=== PATIENT | male | born 1950 | race Caucasian/White ===

== ENCOUNTER 2018-08-25 11:56 | Inpatient (IN) ==
[2018-08-25] MEDS ORDERED: TYLENOL PO PRN (12:44)
--- NOTE | 2018-08-25 13:19 | EKG Report ---
Test Performed on : 08/25/2018 1:14:23 PM Test Reason : afib Blood Pressure : / mmHG Vent. Rate : 119 BPM Atrial Rate : 156 BPM P-R Int : 000 ms QRS Dur : 114 ms QT Int : 378 ms P-R-T Axes : 000 -38 091 degrees QTc Int : 531 ms Atrial fibrillation. with rapid ventricular response. Left axis deviation Incomplete right bundle branch block Inferior infarct , age undetermined Prolonged QT Abnormal ECG No previous ECGs available Confirmed by Srinivas VELASQUEZ, Yoandy Carcamo ([id number]) on 08/25/2018 5:45:08 PM
[2018-08-25] MEDS ORDERED: MUCINEX PO ONE (13:29)
[2018-08-25] MEDS ORDERED: NORVASC PO ONE ×2 (13:31→17:15)
[2018-08-25 13:52] LABS: BASO# 0.07 X1000 (0.0-0.2); BASO% 0.6 % (0.0-0.8); EOS# 0.04 X1000 (0.0-0.7); EOS% 0.4 % (0.0-10.0); HEMATOCRIT 35.4 % (42.0-52.0); HEMOGLOBIN 11.1 g/dL (14.0-18.0); IMM GRAN# 0.03 X1000 (0.0-0.04); IMM GRAN% 0.3 % (0.0-0.5); LYMPH# 1.12 X1000 (1.2-3.4); LYMPH% 10.1 % (20.5-51.1); MCH 25.8 PG (27-31); MCHC 31.4 g/dL (33-37); MCV 82.1 FL (81-99); MONO# 1.57 X1000 (0.11-0.59); MONO% 14.2 % (1.7-9.3); MPV 9.5 FL (7.4-10.4); NEUT# 8.25 X1000 (1.4-6.5); NEUT% 74.4 % (42.2-75.2); PLT 385 X1000 (130-400); RBC 4.31 XMIL (4.7-6.1); RDW 16.4 % (11.5-14.5); WBC 11.08 X1000 (4.8-10.8)
[2018-08-25] MEDS ORDERED: BENICAR PO ONE ×2 (14:00→17:15)
[2018-08-25] MEDS ORDERED: MAXIPIME 1 GM in NS 50 ML IV SCH (14:00)
[2018-08-25 14:14] LABS: HEMOGLOBIN A1C 6.9 % (4.8-6.0)
[2018-08-25 14:21] LABS: ALBUMIN 3.9 g/dL (3.5-5.0); CALCIUM 9.5 mg/dL (8.8-10.2); CREATININE 1.3 mg/dL (0.7-1.2); POTASSIUM 3.6 mmol/L (3.5-5.1); TOTAL BILIRUBIN 0.74 mg/dL (0.20-1.00); TOTAL PROTEIN 7.8 g/dL (6.3-8.3)
[2018-08-25 14:33] LABS: TSH 3.32 uIUmL (0.27-4.20)
[2018-08-25 14:36] LABS: FREE T4 2.17 ng/dL (0.93-1.70)
--- NOTE | 2018-08-25 14:51 | HISTORY AND PHYSICAL ---
PRIMARY CARE PROVIDER: Dr. Baldo Villela. CHIEF COMPLAINT: Shortness of breath with a productive cough and difficulty breathing. HISTORY OF PRESENT ILLNESS: Mr Caesar Avendano is a 67-year-old, male with a medical history of coronary artery disease and a CABG in 2012. Also, a mitral valve replacement. The patient is unsure if it is mechanical or tissue. He has a history of diabetes, atrial fibrillation on Pradaxa, and hypertension. Last Saturday he started having symptoms of cough, wheeze, and headache. By Saturday he had decreased appetite, worsening shortness of breath, and subjective fever with chills. He presented to [facility] due to his PCP being closed on Fridays. He received Rocephin and steroids intramuscularly. He was sent home with a prescription of doxycycline. The patient proceeded to continue the doxycycline but symptoms have worsened. He started having worsening productive cough with phlegm being white in color, but most recently started turning yellow in color. He presented to Dr. Villela's office today where a chest x-ray was performed, which is shown on a different AH number for 9:10 this morning, which showed hazy infiltrate at the right base and bronchopneumonia. So, he is being admitted for failed outpatient therapy for pneumonia. He also has atrial fibrillation that is tachycardic at this time with a rapid ventricular response in the 1teens, up to 120s, and blood pressure is stable. He has mild hypoxia with 88% saturation on room air in the office and 91% saturation on room air here. He is being placed on oxygen therapy. Dr. Villela spoke with Dr. Gutierrez by phone, who apparently recommended Zyvox and cefepime, given his history of valve replacement and to perform cultures, so will consult Dr. Gutierrez. PAST MEDICAL HISTORY: 1. Coronary artery disease with a myocardial infarction in 2012. No cardiac stents, but had bypass surgery x3. 2. Diabetes mellitus, type 2. 3. Hypertension. 4. Atrial fibrillation, chronic, with failed DCCVs in 2012. 5. Macular degeneration of the left eye. 6. Hyperlipidemia. SURGICAL HISTORY: 1. CABG x3 with mitral valve replacement in 2012. Unsure if it is tissue or mechanical, likely is tissue. He is on Pradaxa for his atrial fibrillation. 2. Total left hip replacement. 3. Anterior cervical fusion. 4. Bilateral cataract surgery. 5. DCCV x2 in 2012. SOCIAL HISTORY: Quit smoking in 2012, prior to that he smoked two small packs of cigars per day, mostly chewed on them, but had been doing that since the age of 16. He also quit alcohol in the year 1999. Denies any illicit drug use. He is here with his at the bedside. FAMILY HISTORY: Mother at 53 of lung cancer. Father at 62 of end- stage renal disease. ALLERGIES: Invokana. HOME MEDICATIONS: Have not been verified by nursing staff or reconciled in the computer, but the list was given to me by the patient and he is on 1. Pradaxa 150 mg p.o. twice daily. 2. Glimepiride 4 mg p.o. twice daily. 3. Amiodarone 200 mg p.o. daily. 4. Gisela, which is amlodipine/olmesartan 5/20 daily. 5. Pravastatin 40 mg p.o. nightly. 6. Aspirin 81 mg p.o. daily. 7. Metformin 500 mg p.o. twice daily. REVIEW OF SYSTEMS: A 14-point review of systems are complete and all are negative except as mentioned above in HPI. He continues to have cough and wheeze. Denies headache at this time, but has decreased appetite and poor p.o. intake. He has subjective fever with chills and worsening shortness of breath at night. He denies any chest pain. PHYSICAL EXAMINATION: VITAL SIGNS: Temperature 98.8. Heart rate initially was 78, is up to 110 and was 119 on EKG. Atrial fibrillation. Respiratory rate 20. Blood pressure 166/85. O2 saturation 91% on room air. He was placed on 2 L per nasal cannula. HEENT: Atraumatic and normocephalic. Pupils are equal, round and reactive to light. Extraocular movements intact. Mucous membranes are dry. NECK: Trachea midline. CARDIOVASCULAR: Irregularly irregular, tachycardic rate and rhythm. No rubs, gallops, or murmurs. Trace of lower extremity edema. He had +2 dorsalis and radial pulses. Negative for JVD or carotid bruits. PULMONARY: Clear to auscultation in the upper lobes. Decreased in the bases and some mild expiratory wheezes noted. No accessory muscle use or work of breathing noted. He is tolerating 2L nasal cannula. GASTROINTESTINAL: Soft, nontender, nondistended. Positive bowel sounds x4. EXTREMITIES: Moves all extremities equally with full range of motion. NEUROLOGICAL: A and O x3. Follows commands. Sensory is intact. SKIN: Warm, dry, and intact. LABORATORY DATA: Not available yet, has been ordered. IMAGING: Chest x-ray that was performed at 9:10 this morning on a different AH number, results with stable, mild cardiomegaly, apparent hazy infiltrate at the right base with bronchopneumonia that cannot be excluded. EKG on this admit shows atrial fibrillation with a rapid ventricular response, rate of 119, prolonged QTC of 531. ASSESSMENT AND PLAN: 1. Failed outpatient treatment of bronchopneumonia. He was given Rocephin, steroids, and doxycycline. Per Dr. Gutierrez, who spoke with Dr. Villela, the patient will be started on Zyvox and cefepime and cultures will be ordered. Will also order a lactate. 2. Chronic atrial fibrillation, now with mild rapid ventricular response with hemodynamics stable. Rate is anywhere from 110 up to 120s. He skipped his amiodarone this morning, so will resume that and give a now dose. Blood pressure could probably tolerate a beta-kasie. He is not on any beta-kasie therapy at home. Will continue the Pradaxa at 150 mg p[address] twice daily. Dr. Conde is his senior director creative services. Currently will hold on consult unless we have difficulties with controlling rate. Rate should improve after receiving intravenous fluid hydration and the antibiotics, likely is more tachycardic given the infection. 3. Hyperlipidemia. Continue statin. 4. Diabetes mellitus type 2. Will do patterned blood glucoses, sliding scale insulin, and will check a hemoglobin A1c. 5. Coronary artery disease with history of myocardial infarction and coronary artery bypass graft. Continue aspirin and statin, but again he is not on a beta-kasie and he may benefit from a beta-kasie. No complaints of chest pain. 6. Hypertension. He takes Gisela at home, which is amlodipine/olmesartan, will continue that. 7. Could be sepsis, but will wait and see what the white blood cell count looks like and the lactate. He is definitely not in shock. Dictated by LEVI Wilkinson for Martinez Kulkarni MD cc: LEVI Wilkinson MD Baldo Tika I have seen and examined Mr Avendano today. No family around. I have reviewed his labs and imaging studies. Mr Avendano presents with failed outpatient management for bronchopneumonia. I agree with the above HPI and the plan reflects my opinion discussed with the CATALOGUE LIBRARIAN. JESSICA
[2018-08-25] MEDS ORDERED: MAXIPIME 2 GM in NS 50 ML IV SCH (15:05)
[2018-08-25] MEDS: ZYVOX 600 MG/D5W 600 MG/300 ML IVPB IV SCH (15:19)
[2018-08-25] MEDS: NS 1,000 ML IV SCH (15:19)
[2018-08-25] MEDS: ATROVENT NEB INH SCH ×3 (15:43→23:00)
[2018-08-25] MEDS: XOPENEX NEB INH SCH ×3 (15:43→23:00)
--- NOTE | 2018-08-25 16:12 | INFECTIOUS DISEASE CONSULT REP ---
DATE: 08/25/2018 CONCLUSION: The patient is admitted to the hospital with a right lower lobe infiltrate and the patient was not getting any better despite being on p.o. antibiotics and one injection of Rocephin. RECOMMENDATIONS: Dr. Villela called me on this patient. I told him to start the patient on cefepime and Zyvox. Subsequently, the patient has been admitted and the nurse practitioner based on my call with Dr. Villela ordered that the patient be started on Zyvox and cefepime. I have increased the dose of cefepime from 1 g to 2 g IV every 12 hours. DISCUSSION: The patient approximately 4 days ago developed fever and a cough. He was producing some white sputum, but now he does not have any sputum production. He also was experiencing odynophagia. He said he felt like there was something in his throat that made it difficult for him to swallow. This just started in the past 2 days. The patient was tried on oral antibiotics and also an injection of Rocephin, but the patient did not get any better and therefore he has been hospitalized. Studies we have thus far [place] [address], hemoglobin 11.1 and platelet count 385,000. Creatinine is 1.3. GFR is 55. Liver function studies are normal. Chest x-ray shows a right lower lobe infiltrate. PAST MEDICAL HISTORY/REVIEW OF SYSTEMS: Eyes and Ears: Patient has decreased hearing and he wears glasses for vision. Neck: No stiffness. Respiratory: See present illness. Gastrointestinal: No nausea, vomiting or diarrhea. Genitourinary: No dysuria or flank pain. Cardiac: No chest pains or palpitations. Bones, Joints, Muscles: The patient currently is not complaining of any joint pain or muscle aching. Integument: No rashes. Endocrine: The patient is diabetic, but he does not have any thyroid problems. PREVIOUS HOSPITALIZATIONS AND OPERATIONS: He has had coronary artery bypass grafting, mitral valve replacement, and myocardial infarction. He has also had a left total hip arthroplasty. He has had surgery on his cervical spine which included putting some metal on the spine. MEDICAL DISEASES: Positive for obesity, diabetes mellitus, hypertension, myocardial infarction, hyperlipidemia, degenerative joint disease and atrial fibrillation. INFECTIOUS DISEASE HISTORY: Negative for pneumonia and UTI. FAMILY HISTORY: Positive for renal failure, cancer and hypertension. SOCIAL HISTORY: [place] He is . He does not smoke cigarettes, drink alcoholic beverages or abuse drugs. He is retired. He has dogs for pets. ALLERGIES: His chart lists no known drug allergies. HOME MEDICATIONS: Include the following: Amiodarone, amlodipine/olmesartan, Pradaxa, aspirin, glimepiride, metformin and Pravachol. PHYSICAL EXAMINATION: Vital Signs: Temperature is 98.8, pulse 110, respirations 20, blood pressure 166/85. Patient is 5 feet 9 inches tall. Weighs 232 pounds. General: This is an obese elderly male. He is in no acute distress. Head, Eyes, Ears, Nose and Throat: He can hear my spoken words and see near objects. He has decreased hearing and he wears glasses for his vision. I did not see any white patches in his mouth, I did not see any ulcerated areas. His throat did not look red. Neck: No meningismus. Thorax: Patient seemed to have an increased AP diameter of his chest. Lungs: Clear to auscultation. Cardiovascular: Heart rate is irregular. Abdomen: Soft and nontender. Neurologic: The patient is alert. He can move his extremities. There is no tremor. His sensation is intact to touch. His memory as regarding his medical history seems to be intact. Integument: No rash was noted. Bones, Joints, Muscles: No swollen joints and no muscle tenderness. Thank you for the consult. cc: Davi Gutierrez MD
[2018-08-25 16:15] LABS: URINE SOURCE CLEAN CATCH
[2018-08-25 16:16] LABS: ALLEN TEST YES; BE 2.4 mmoll (-3.0-3.0); BLOOD TYPE ARTERIAL; HCO3-(ACT) 26.7 mmoll (20.0-26.0); O2(CT) 12.3 mL/dL (15.0-23.0); PCO2(98.6) 42 mmHg (35-45); PO2(98.6) 57 mmHg (60-100); SAMPLE BLOOD; SAO2 89.4 % (95.0-100.0); THB 9.8 g/dL (11.5-17.4); pH(98.6) 7.42 (7.35-7.45)
[2018-08-25 16:17] LABS: O2HB 89.3 % (95.0-99.0)
[2018-08-25 16:18] LABS: MODALITY CANNULA
[2018-08-25 16:26] LABS: BILIRUBIN URINE NEGATIVE (NEGATIVE); BLOOD URINE LARGE (NEGATIVE); COLOR YELLOW; GLUCOSE URINE TRACE mg/dL (NEGATIVE); KETONE URINE NEGATIVE (NEGATIVE); LEUKOCYTES URINE NEGATIVE (NEGATIVE); NITRITE URINE NEGATIVE (NEGATIVE); PROTEIN URINE 300 mg/dL (NEGATIVE); SP GRAVITY URINE 1.016; TURBIDITY URINE CLEAR (CLEAR); UROBILINOGEN URINE NORMAL (NORMAL)
[2018-08-25 16:27] LABS: UR EPITHELIAL CELLS <10 /HPF (<10); URINE BACTERIA NEGATIVE /HPF; URINE WBC <10 /HPF (<10)
[2018-08-25] MEDS: CORDARONE PO SCH (16:36)
[2018-08-25] MEDS: HUMULIN R SUBQ SCH ×2 (16:39→22:37)
[2018-08-25] MEDS: ASPIRIN PO SCH (17:47)
[2018-08-25] MEDS: PRADAXA PO SCH (22:34)
[2018-08-25] MEDS: PRAVACHOL PO SCH (22:35)
[2018-08-25] MEDS: MUCINEX PO SCH (22:35)
[2018-08-26] MEDS: ATROVENT NEB INH SCH ×6 (03:00→23:49)
[2018-08-26] MEDS: XOPENEX NEB INH SCH ×6 (03:00→23:49)
[2018-08-26] MEDS: ZYVOX 600 MG/D5W 600 MG/300 ML IVPB IV SCH ×2 (03:11→14:59)
[2018-08-26] MEDS: NS 1,000 ML IV SCH (03:11)
[2018-08-26] MEDS ORDERED: NS 50 ML ONE (05:24)
[2018-08-26 06:58] LABS: BASO# 0.04 X1000 (0.0-0.2); BASO% 0.4 % (0.0-0.8); EOS# 0.03 X1000 (0.0-0.7); EOS% 0.3 % (0.0-10.0); HEMATOCRIT 30.3 % (42.0-52.0); HEMOGLOBIN 9.4 g/dL (14.0-18.0); IMM GRAN# 0.03 X1000 (0.0-0.04); IMM GRAN% 0.3 % (0.0-0.5); LYMPH# 0.99 X1000 (1.2-3.4); LYMPH% 9.5 % (20.5-51.1); MCH 25.6 PG (27-31); MCV 82.6 FL (81-99); MONO# 1.54 X1000 (0.11-0.59); MONO% 14.8 % (1.7-9.3); NEUT# 7.77 X1000 (1.4-6.5); NEUT% 74.7 % (42.2-75.2); PLT 321 X1000 (130-400); RBC 3.67 XMIL (4.7-6.1); RDW 16.2 % (11.5-14.5)
[2018-08-26 07:15] LABS: ALBUMIN 3.3 g/dL (3.5-5.0); CALCIUM 8.1 mg/dL (8.8-10.2); CREATININE 1.7 mg/dL (0.7-1.2); POTASSIUM 3.4 mmol/L (3.5-5.1); TOTAL BILIRUBIN 0.61 mg/dL (0.20-1.00); TOTAL PROTEIN 6.5 g/dL (6.3-8.3)
[2018-08-26] MEDS: HUMULIN R SUBQ SCH ×4 (07:32→21:40)
[2018-08-26] MEDS ORDERED: NORVASC PO SCH (09:00)
[2018-08-26] MEDS ORDERED: BENICAR PO SCH (09:00)
[2018-08-26] MEDS: PRADAXA PO SCH ×2 (09:11→21:40)
[2018-08-26] MEDS: ASPIRIN PO SCH (09:11)
[2018-08-26] MEDS: MUCINEX PO SCH ×2 (09:11→21:40)
[2018-08-26] MEDS: CORDARONE PO SCH (09:12)
[2018-08-26] MEDS: MAXIPIME 2 GM in NS 100 ML IV SCH ×2 (09:30→21:40)
--- NOTE | 2018-08-26 13:21 | PROGRESS NOTE ---
DATE: 08/26/2018 SUBJECTIVE: Patient reports feeling fine. Actually, he is standing up, not using any oxygen. At this point, not complaining of any shortness of breath. No fever or chills. OBJECTIVE: Vital Signs: Temperature 98.1 degrees, heart rate 106, respiratory rate 15, blood pressure 118/78, O2 saturation 94% on 2 L nasal cannula. General: This is a 67-year-old male, lying in bed, in no acute distress. HEENT: Head is normocephalic and atraumatic. Neck: No JVD noted. No carotid bruits. No lymphadenopathy. No thyromegaly. Cardiovascular: S1, S2 heard. No murmurs, gallops, or rubs. Regular rate and rhythm. Respiratory: Decreased breath sounds globally in both pulmonary bases. Wheezing all over. Patient is not using any accessory muscles or having work of breathing. Abdomen: Soft, nontender to palpation. Bowel sounds present. No organomegaly. Extremities: No clubbing, cyanosis, or edema. Peripheral pulses present in both legs. Neurological: Patient alert and oriented x3, moves 4 extremities. LABORATORY DATA: White cell count 10.4, hemoglobin 9.4, hematocrit 30.3, platelets 321,000 with BMP remarkable for creatinine 1.7, sodium 135, potassium 3.4. ASSESSMENT AND PLAN: 1. Bronchopneumonia, failed outpatient treatment. Currently, this patient is on Zyvox and cefepime. White cell count is getting better. It is actually back to normal. No fever reported. No shortness of breath. Dr. Gutierrez from infectious disease is following this patient. We will follow recommendations. 2. Chronic atrial fibrillation. Heart rate has been in the range of 99 and 110 most of the time. At this point, with no palpitations noted, we will continue with the same management. 3. Acute kidney injury. Renal function was normal on admission, but has gone up to 1.7. At this point, the only nephrotoxic medication is olmesartan, which we are going to stop and increase the doses of amlodipine from 5 to 10 twice daily. We will continue to monitor basic metabolic panel and blood pressure. 4. Hyperlipidemia. Patient is on statin. We will continue with the same management. 5. Diabetes mellitus type 2. Hemoglobin A1c is 6.9. We will continue with the sliding scale insulin and Accu-Chek before meals and also at bedtime. 6. Coronary artery disease with history of myocardial infarction and coronary artery bypass. The patient is on aspirin and statin, not complaining of any chest pain. We will continue to monitor. 7. Hypertension. Blood pressure is under control. We will continue with the same medications. We will stop olmesartan, and we will continue with amlodipine. 8. Disposition. We will continue to monitor this patient closely. cc: Robert Welch MD
--- NOTE | 2018-08-26 15:40 | INFECTIOUS DISEASE PROGRESS NO ---
DATE: 08/26/2018 PRESENT ILLNESS: The patient has a right lower lobe infiltrate thought to be pneumonia. He was not getting any better on outpatient oral antibiotics. MEDICATIONS: The patient is taking a combination of Zyvox and cefepime. PHYSICAL EXAMINATION: Vital Signs: Temperature is 98.6, pulse 118, respirations 15, blood pressure 136/79. Generally, this is an obese, elderly male. He is in no acute distress. Head/eyes/ears/nose/throat: He can hear my spoken words and see near objects. He does not have any white coating on his tongue. Neck: No meningismus. Lungs clear to auscultation. Cardiovascular: The patient's heart rate is irregular. Abdomen is soft and nontender. Neurologic: The patient is alert. He can move his extremities. There is no tremor. LABORATORY DATA AND X-RAY: There is no new radiographic study. The CBC today shows a white count of 10,400. Hemoglobin 9.4, and platelet count 321,000. Creatinine is 1.7. GFR is 40. ASSESSMENT AND PLAN: The patient has pneumonia. I am going to continue with current antibiotics and obtain a chest x-ray tomorrow. COMORBIDITIES: The patient is a diabetic. cc: Davi Gutierrez MD
[2018-08-26] MEDS: PRAVACHOL PO SCH (21:40)
[2018-08-26] MEDS: NORVASC PO SCH (21:40)
[2018-08-27] MEDS: ZYVOX 600 MG/D5W 600 MG/300 ML IVPB IV SCH ×2 (03:24→15:57)
[2018-08-27] MEDS: XOPENEX NEB INH SCH ×6 (03:45→22:55)
[2018-08-27] MEDS: ATROVENT NEB INH SCH ×6 (03:45→22:55)
[2018-08-27 06:24] LABS: BASO# 0.03 X1000 (0.0-0.2); BASO% 0.3 % (0.0-0.8); EOS# 0.24 X1000 (0.0-0.7); EOS% 2.3 % (0.0-10.0); HEMATOCRIT 28.5 % (42.0-52.0); HEMOGLOBIN 8.8 g/dL (14.0-18.0); IMM GRAN# 0.04 X1000 (0.0-0.04); IMM GRAN% 0.4 % (0.0-0.5); LYMPH# 1.15 X1000 (1.2-3.4); LYMPH% 10.8 % (20.5-51.1); MCH 25.1 PG (27-31); MCHC 30.9 g/dL (33-37); MCV 81.4 FL (81-99); MONO# 1.48 X1000 (0.11-0.59); MONO% 13.9 % (1.7-9.3); MPV 9.9 FL (7.4-10.4); NEUT# 7.71 X1000 (1.4-6.5); NEUT% 72.3 % (42.2-75.2); PLT 343 X1000 (130-400); RDW 15.9 % (11.5-14.5); WBC 10.65 X1000 (4.8-10.8)
[2018-08-27] MEDS: HUMULIN R SUBQ SCH ×4 (06:46→20:50)
[2018-08-27 06:52] LABS: LYMPHS 14 % (21-51); MONO 6 % (1-9); SEGS 78 % (42-75)
[2018-08-27 06:57] LABS: CALCIUM 8.1 mg/dL (8.8-10.2); CREATININE 1.4 mg/dL (0.7-1.2); POTASSIUM 3.7 mmol/L (3.5-5.1)
--- NOTE | 2018-08-27 07:26 | Diag Imaging Result Doc PS360 ---
EXAM: CHEST-2 VIEWS INDICATION: pneumonia TECHNIQUE: 2 views COMPARISON: 08/25/2018 FINDINGS: The vague infiltrate at the right lung base appears to have improved marginally. No new consolidation is identified. Cardiac silhouette is stable. IMPRESSION: Marginal improvement of consolidation at the right lung base. Electronically signed by Jose Walker 08/27/2018 7:24 AM
[2018-08-27] MEDS: CORDARONE PO SCH (09:51)
[2018-08-27] MEDS: ASPIRIN PO SCH (09:51)
[2018-08-27] MEDS: MAXIPIME 2 GM in NS 100 ML IV SCH ×2 (09:51→22:21)
[2018-08-27] MEDS: PRADAXA PO SCH ×2 (09:52→20:58)
[2018-08-27] MEDS: NORVASC PO SCH ×2 (09:52→20:51)
[2018-08-27] MEDS: MUCINEX PO SCH ×2 (09:52→20:51)
--- NOTE | 2018-08-27 15:43 | PROGRESS NOTE ---
DATE: 08/27/2018 SUBJECTIVE: The patient reports feeling fine. Not requiring any oxygen supplementation at the time of my evaluation. Reports having walked in the hallways without any shortness of breath. No chest pain. OBJECTIVE: Vital Signs: Temperature 97.8, heart rate 82, respiratory rate 19, blood pressure 121/84. O2 saturation 95% on room air. General: This is a 67-year-old male, lying in bed in no acute distress. Cardiovascular: S1, S2 heard. No murmurs, gallops, or rubs. Regular rate and rhythm. Respiratory: There is some decreased breath sounds globally with minimal wheezing in both pulmonary bases. The patient is not using any accessory muscles or having work of breathing. Abdomen is soft, nontender to palpation. Bowel sounds present. No organomegaly. Extremities: No clubbing, cyanosis, or edema. Peripheral pulses present in both legs. Neurological: Patient is alert and oriented x3. Moves 4 extremities. LABORATORY DATA: White cell count 10.65, hemoglobin 8.8, hematocrit 28.5 platelets 343,000. Creatinine 1.4. Sodium 134. ASSESSMENT AND PLAN: 1. Bronchopneumonia; failed outpatient treatment. Currently, he is on Zyvox and cefepime, day #2 of treatment. White cell count is back to normal. The patient clinically is doing fine. No fever reported. No shortness of breath. Dr. Gutierrez is following this patient. We will follow recommendations. Clinically, I think this patient can be discharged tomorrow. 2. Chronic atrial fibrillation. Heart rate has been controlled. We will continue with the same management. 3. Acute kidney injury. Actually, the renal function on this patient is 1.4. It has been 1.5 one year ago. At this time, I think this patient has chronic kidney disease, stage 2. We will continue monitoring this patient closely. Creatinine at baseline. 4. Hyperlipidemia. Patient is on statin. We will continue with the same medications. 5. Diabetes mellitus, type 2. We will continue with sliding scale insulin and Accu-Chek before meals and also at bedtime. 6. Coronary artery disease with history of myocardial infarction. The patient is doing okay. Not complaining of any chest pain. We will continue to monitor this patient closely. 7. Hypertension. Blood pressure is under control. We will continue with the same medications. DISPOSITION: I think this patient clinically is doing better. So, I think it is reasonable to discharge him tomorrow if he is feeling fine and labs are okay. I will talk with Dr. Gutierrez about antibiotics at discharge. cc: Robert Welch MD MTDD
[2018-08-27] MEDS: PRAVACHOL PO SCH (20:51)
[2018-08-28] MEDS: ATROVENT NEB INH SCH ×3 (03:00→11:12)
[2018-08-28] MEDS: XOPENEX NEB INH SCH ×3 (03:00→11:13)
[2018-08-28] MEDS: ZYVOX 600 MG/D5W 600 MG/300 ML IVPB IV SCH (03:13)
--- NOTE | 2018-08-28 05:49 | INFECTIOUS DISEASE PROGRESS NO ---
DATE: 08/27/2018 PRESENT ILLNESS: The patient has a right lower lobe pneumonia. MEDICATIONS: The patient is receiving a combination of cefepime and Zyvox. PHYSICAL EXAMINATION: Vital Signs: Temperature is 97.8 degrees, pulse 82, respirations 19, blood pressure 121/84. General: This is an obese, elderly male. He is in no acute distress. He told me today that he is feeling much better. Head, Eyes, Ears, Nose, and Throat: He can hear my spoken words and see near objects. He does not have any white coating on his tongue. Neck: No stiffness. Lungs: Clear to auscultation. Cardiovascular: Heart rate is irregular. Abdomen: Soft, without masses or tenderness. Neurologic: The patient is alert. He can move his extremities. There is no tremor. LAB AND X-RAY STUDIES: CBC today shows a white count of 10,650, hemoglobin 8.8, and platelet count 343,000. Creatinine is 1.4. GFR is 51. Blood cultures are sterile. Sputum is growing normal florae. Chest x-ray shows improvement in the right lower lobe infiltrate. ASSESSMENT AND PLAN: The patient has pneumonia. I am going to continue with his current antibiotics and repeat the chest x-ray tomorrow. If the x-ray is looking better tomorrow, I think the patient can go home on oral antibiotics. COMORBIDITIES: The patient is elderly and he is a diabetic. cc: Davi Gutierrez MD
[2018-08-28] MEDS: HUMULIN R SUBQ SCH (06:15)
[2018-08-28 06:51] LABS: BASO# 0.04 X1000 (0.0-0.2); BASO% 0.4 % (0.0-0.8); EOS# 0.25 X1000 (0.0-0.7); EOS% 2.4 % (0.0-10.0); HEMATOCRIT 29.8 % (42.0-52.0); HEMOGLOBIN 9.1 g/dL (14.0-18.0); IMM GRAN# 0.03 X1000 (0.0-0.04); IMM GRAN% 0.3 % (0.0-0.5); LYMPH# 1.23 X1000 (1.2-3.4); LYMPH% 11.8 % (20.5-51.1); MCHC 30.5 g/dL (33-37); MCV 81.9 FL (81-99); MONO# 1.24 X1000 (0.11-0.59); MONO% 11.9 % (1.7-9.3); MPV 9.5 FL (7.4-10.4); NEUT# 7.61 X1000 (1.4-6.5); NEUT% 73.2 % (42.2-75.2); PLT 409 X1000 (130-400); RBC 3.64 XMIL (4.7-6.1); RDW 15.9 % (11.5-14.5)
[2018-08-28 07:22] LABS: CALCIUM 9.2 mg/dL (8.8-10.2); CREATININE 1.6 mg/dL (0.7-1.2); POTASSIUM 3.7 mmol/L (3.5-5.1)
[2018-08-28 08:04] VITALS: BP 116/68
[2018-08-28] MEDS: MAXIPIME 2 GM in NS 100 ML IV SCH (09:03)
[2018-08-28] MEDS: PRADAXA PO SCH (09:06)
[2018-08-28] MEDS: ASPIRIN PO SCH (09:07)
[2018-08-28] MEDS: NORVASC PO SCH (09:07)
[2018-08-28] MEDS: CORDARONE PO SCH (09:07)
[2018-08-28] MEDS: MUCINEX PO SCH (09:07)
--- NOTE | 2018-08-28 09:29 | Diag Imaging Result Doc PS360 ---
EXAM: CHEST-2 VIEWS 08/28/2018 HISTORY: pneumonia TECHNIQUE: PA and lateral chest COMMENT: There is cardiomegaly. There is some mild interstitial pulmonary edema which appears to have improved since the previous study of 08/27/2018. Otherwise there has been no significant change. IMPRESSION: Improved pulmonary edema. Electronically signed by Israel Alba 08/28/2018 9:27 AM
--- NOTE | 2018-08-28 12:06 | INFECTIOUS DISEASE PROGRESS NO ---
DATE: 08/28/2018 PRESENT ILLNESS: The patient has a right lower lobe pneumonia. There may be a component of pulmonary venous congestion also. MEDICATIONS: The patient is receiving Zyvox and cefepime. PHYSICAL EXAMINATION: Vital Signs: Temperature is 98 degrees, pulse 105, respirations 18, blood pressure 116/68. General: This is an obese, elderly male. He is in no acute distress. Head, Eyes, Ears, Nose, and Throat: He can hear my spoken words and see near objects. He does not have any white coating on his tongue. Neck: No meningismus. Lungs: Clear to auscultation. Cardiovascular: Heart rate is irregular. Abdomen: Soft without masses or tenderness. Neurologic: The patient is alert. He ambulates without difficulty. There is no tremor. LABORATORY AND X-RAY: His chest x-ray showed improvement in the patient's infiltrates. The creatinine is 1.6. GFR is 43. Sputum grew a normal pao. Blood cultures are negative. CBC shows a white count of 10,400, hemoglobin 9.1, and platelet count 409,000. ASSESSMENT AND PLAN: The patient has pneumonia. There may be a component also of pulmonary venous congestion. I have printed up through the computer prescriptions for Augmentin 875 mg by mouth every 12 hours for 11 days and ciprofloxacin 500 mg by mouth every 12 hours for 11 days. I have gone ahead and put in an order to have the patient return to my office in 2 weeks, at which time he will be examined and also the x-ray will be repeated. COMORBIDITIES: The patient is elderly and he is a diabetic. cc: Davi Gutierrez MD
--- NOTE | 2018-08-28 16:20 | DISCHARGE SUMMARY ---
ADMISSION DATE: 08/25/2018 DISCHARGE DATE: 08/28/2018 DISCHARGE DIAGNOSES: 1. Bronchopneumonia, under treatment, improved. 2. Chronic atrial fibrillation, controlled. 3. Hyperlipidemia. 4. Diabetes mellitus type 2. 5. Coronary artery disease, status post coronary artery bypass graft. 6. Hypertension. CONSULTATIONS: Dr. Davi Gutierrez from infectious disease. PROCEDURES: 1. Chest x-ray done on admission showed marginal improvement of the consolidation of the right lung base. 2. Chest x-ray done at discharge showed improved pulmonary edema. HOSPITAL COURSE: This is a 67-year-old male with a past medical history of coronary artery disease and CABG in 2011 and mitral valve replacement. The patient reports that he was having a cough, wheezing, and headaches, so he was diagnosed with pneumonia, so he went to [facility]. So, he received a shot of Rocephin, and he was sent home with a prescription for doxycycline, but unfortunately, he continued to get worse. So, he was seen by Dr. Villela, who ordered a chest x-ray, which showed hazy infiltrates in the right base and bronchopneumonia, so he was admitted to the hospital. He was started on broad-spectrum antibiotics with cefepime and Zyvox. The patient was getting better. Today the patient was doing okay, not requiring any oxygen supplementation, and he was on room air. So, at this time, ID, and me, we are okay to send this patient home. Dr. Gutierrez is going to manage his antibiotics. He is going to be discharged in stable condition. DISCHARGE PHYSICAL EXAMINATION: Vital Signs: Temperature 98 degrees, heart rate 105, respiratory rate 18, blood pressure 116/68, and O2 saturation 92% on room air. General: This is a 67-year- old male, lying in bed, in no acute distress. HEENT: Head is normocephalic, atraumatic. Neck: No JVD noted. No carotid bruits. No lymphadenopathy. No thyromegaly. Cardiovascular: S1 and S2 heard. No murmurs, gallops, or rubs. Regular rate and rhythm. Respiratory: Clear bilaterally to auscultation. Minimal coarse breath sounds noted. No work of breathing noted. Abdomen: Soft, nontender to palpation. Bowel sounds present. No organomegaly. Extremities: No clubbing, cyanosis, or edema. Peripheral pulses present in both legs. Neurological: The patient alert and oriented x3. Moves 4 extremities. DISCHARGE DISPOSITION: Home to self-care. LIST OF MEDICATIONS: 1. Augmentin 875 mg 1 tablet p.o. b.i.d. 2. Ciprofloxacin 500 mg 1 tablet p.o. every 12 hours. 3. Amiodarone 200 mg 1 tablet p.o. daily. 4. Aspirin 81 mg 1 tablet p.o. daily. 5. Pradaxa 150 mg 1 tablet p.o. b.i.d. 6. Glimepiride 4 mg 1 tablet p.o. b.i.d. 7. Metformin 500 mg 1 tablet p.o. b.i.d. 8. Amlodipine/olmesartan 5/20 mg 1 tablet p.o. daily. 9. Pravachol 40 mg 1 tablet p.o. at bedtime. FOLLOWUP: With his primary care doctor in 1 week. TIME SPENT: The time spent discharging this patient is 30 minutes. cc: Robert Welch MD
== END 2018-08-28 12:32 | disposition home or self-care (01) | DRG 195 ==
LOC: DIRADM 11:56 → SUATTDRO 11:56 → 3N 12:22
PROVIDERS: ATTEND Internal Medicine
CPT/HCPCS: 36415; 71020; 71046; 80048; 80053; 80061; 81001; 82550; 82805; 82948; 83036; 83605; 83721; 83735; 83880; 84439; 84443; 84484; 85025; 87040; 87070; 87205; 93005; 93010; 94640; 94761; A9270; J0692; J2020; J7030; XXXXX